=== PATIENT | male | born 1950 ===

== ENCOUNTER → 2017-06-30 | Outpatient (CLI) | payer BC ==
[~2017-06-30] MED LIST: AMLO5 PO; ASPI81EC PO; DIPATR PO; GARLIC; LOSHYD100 PO; OLME40 PO; OMEP20ER PO; ONDA4ODT MM; SULTRIDS PO; TOCO400 PO
== END | disposition home or self-care (01) ==
LOC: PLD 11:19 → LAB SHORT 11:19
DX: L82.1 Other seborrheic keratosis (principal)
CPT/HCPCS: 88305